=== PATIENT | female | born 1950 | race Caucasian/White ===

== ENCOUNTER 2021-09-01 14:23 | Emergency (ER) | payer OTHER ==
[~2021-09-01] VITALS: Ht 154.9 cm; Wt 53.5 kg
--- NOTE | 2021-09-01 14:27 | NUR ---
BIBA TAKEN TO BED 8
[2021-09-01 14:42] VITALS: BP 124/96
[2021-09-01] MEDS ORDERED: NACL 0.9% 1,000 ML IV ONE (14:50)
--- NOTE | 2021-09-01 14:59 | NUR ---
XRAY AT BEDSIDE
--- NOTE | 2021-09-01 15:07 | NUR ---
71 Y/O FEMALE BIBA FROM [facility] WITH C/O ALOC. PATIENT IS USUALLY ABLE TO FOLLOW SIMPLE COMMANDS PER NURSE JESSICA. PATIENT BECAME ALTERED 3 DAYS AGO AND WAS GIVEN IV ROCEPHIN FOR TX OF UTI BUT PATIENTS S/S HAVE NOT IMPROVED. PATIENTS IS UNDER THE CARE OF DR. AYALA. MEDICAL HISTORY: ANEMIA, CANCER LUNG, COPD, FRACTURE RIGHT CLAVICLE, CORONARY ATHEROSCLEROSIS, CALCIFIED CORONARY LESIONS, MALIGNANT NEOPLASM OF LARGE INTESTINE MEDICATIONS: SEE LIST NKDA
--- NOTE | 2021-09-01 15:19 | NUR ---
PATIENT WAS TAKEN VIA [facility] FOR CT
--- NOTE | 2021-09-01 15:51 | NUR ---
71/F BIBA FROM [facility] WITH C/O INCREASINGLY MORE ALTERED X2 DAYS. PER STAFF AT FACILITY PATIENT IS USUALLY AOX4 AND ABLE TO VERBALIZE NEEDS, STATING PATIENT HAS PROGRESSIVELY GOTTEN MORE ALTERED. STAFF STATED TO EMS THAT PATIENT WAS DX WITH UTI 3 DAYS AGO AND HAS BEEN RECEIVING IV ROCEPHIN. PATIENT PLACED IN GOWN ON BEDSIDE MATTRESS AND FOUNDATION SEWER UPON ARRIVAL TO ED.
--- NOTE | 2021-09-01 15:53 | NUR ---
LAB AT BEDSIDE.
[2021-09-01 16:56] LABS: BASOPHILS # (AUTO) 0.1 K/uL (0.00-0.22); BASOPHILS % (AUTO) 0.5 % (0.0-2.0); EOSINOPHILS % (AUTO) 0.1 % (0.0-4.0); HEMOGLOBIN 7.9 g/dL (12.0-16.0); LYMPHOCYTES # (AUTO) 0.7 K/uL (2.5-16.5); LYMPHOCYTES % (AUTO) 5.9 % (20.5-51.1); MEAN CORPUSCULAR HEMOGLOBIN 25 pg (27-31); MEAN CORPUSCULAR HGB CONC 29 g/dL (33-37); MEAN CORPUSCULAR VOLUME 84.9 fL (80-94); MONOCYTES # (AUTO) 0.8 K/uL (0.8-1.0); MONOCYTES % (AUTO) 6.6 % (1.7-9.3); NEUTROPHILS # (AUTO) 10.8 K/uL (1.8-7.7); NEUTROPHILS % (AUTO) 86.9 % (42.2-75.2); PLATELET COUNT (AUTO) 238 K/uL (140-450); RED BLOOD CELL COUNT(AUTO) 3.19 MIL/uL (4.20-5.40); RED CELL DISTRIBUTION WIDTH 20.1 % (11.6-13.7); WHITE BLOOD COUNT (AUTO) 12.5 K/uL (4.8-10.8)
[2021-09-01 17:13] LABS: ALBUMIN 1.4 g/dL (3.4-5.0); ASPARTATE AMINOTRANSFERASE 26 U/L (15-37); CARBON DIOXIDE 28.7 mmol/L (21-32); CREATININE 0.5 mg/dL (0.6-1.3); GLUCOSE 106 mg/dL (74-106); TOTAL BILIRUBIN 0.3 mg/dL (0.0-1.0); UREA NITROGEN, BLOOD 23 mg/dL (7-18)
--- NOTE | 2021-09-01 17:30 | NUR ---
Patient noted to have existing wounds upon arrival to ER. Photos taken of wound and placed in chart. Wound covered with dressing. Physician informed.
[2021-09-01 17:43] LABS: ANION GAP 11.5 (8-16); CHLORIDE 108 mmol/L (98-107); POTASSIUM 3.2 mmol/L (3.5-5.1); SODIUM SERUM 145 mmol/L (136-145)
--- NOTE | 2021-09-01 17:47 | NUR ---
ROSA SPECIMEN OBTAINED WALKED TO LAB.
[2021-09-01] MEDS ORDERED: POTASSIUM CHL 20 MEQ/NACL 0.9% 1,000 ML IV ONE (18:05)
--- NOTE | 2021-09-01 18:18 | NUR ---
LAB AT BEDSIDE.
--- NOTE | 2021-09-01 19:00 | NUR ---
# 16 FR Urinary catheter inserted utilizing sterile technique. Immediate return of DARK YELLOW URINE 50ML urine noted. Urine sample collected and sent to lab. Pt tolerated procedure WELL.
[2021-09-01 19:32] LABS: BILIRUBIN,URINE NEGATIVE (NEGATIVE); BLOOD, URINE NEGATIVE (NEGATIVE); COLOR,URINE YELLOW (YELLOW); LEUKOCYTE ESTERASE ,URINE TRACE (NEGATIVE); NITRITE, URINE NEGATIVE (NEGATIVE); PH,URINE 7.5 (5.0-9.0); UGLUCOSE NEGATIVE (NEGATIVE)
[2021-09-01 19:45] LABS: APPEARANCE,URINE HAZY (CLEAR)
[2021-09-01 20:11] LABS: RBC,URINE NONE SEEN /HPF (0-5)
[2021-09-01 20:13] LABS: CALCIUM OXALATE CRYSTALS,UR 0-10 /HPF (None Seen); TRIPLE PHOSPHATE CRYSTAL,UR 0-10 /HPF (None Seen)
--- NOTE | 2021-09-01 20:45 | NUR ---
LAB AT BEDSIDE.
[2021-09-01] MEDS ORDERED: cefTRIAXone 1,000 MG VIAL ONE (21:11)
--- NOTE | 2021-09-01 23:09 | NUR ---
Pt report given to TOÑA CASTILLO. Transfer of care at this time.
--- NOTE | 2021-09-01 23:10 | NUR ---
RECIEVED REPORT FROM ALEX GALLAGHER
[2021-09-02 00:34] LABS: BARBITURATE, URINE NEGATIVE ng/ml (NEG <=200); BENZODIAZEPINE, URINE NEGATIVE ng/mL (NEG <=200); CANNABINOID, URINE NEGATIVE ng/mL (NEG <=50); COCAINE, URINE NEGATIVE ng/mL (NEG <=300); OPIATE, URINE POSITIVE ng/mL (NEG <=2000); PHENCYCLIDINE SCREEN,URINE NEGATIVE ng/mL (NEG <=25)
--- NOTE | 2021-09-02 00:55 | NUR ---
[facility] TRANSPORT AT BEDSIDE
--- NOTE | 2021-09-02 00:57 | NUR ---
PRIMARY RN Matti TRAMMELL GIVING REPORT TO RECEIVING FACILITY
--- NOTE | 2021-09-02 00:58 | NUR ---
Pt report given to TOÑA PAYNE AT [facility] ER VIA TELEPHONE.
[2021-09-02 01:07] VITALS: BP 132/82
--- NOTE | 2021-09-02 01:13 | NUR ---
Patient to be transferred to [facility] ER. Is being transferred due to HIGHER LEVEL OF ORTHOPEDIC CARE. Receiving facility has accepting physician and available space. ER physician has signed transfer form. Patient or responsible constitution party has agreed to transfer and signed form. Patient belongings inventoried and will be sent with patient. Copy of nursing notes, lab reports, EKG, Physicians Orders and X-rays to be sent with patient. Report called to TOÑA PAYNE at receiving facility. [facility] ambulance service has been called for transfer.
== END 2021-09-02 01:13 | disposition short-term general hospital (02) ==
LOC: MED 14:23
DX: R41.82 Altered mental status, unspecified (principal); Z20.822 Contact with and (suspected) exposure to COVID-19; M84.459A Pathological fracture, hip, unspecified, initial encounter for fracture; N39.0 Urinary tract infection, site not specified; R53.1 Weakness; J44.9 Chronic obstructive pulmonary disease, unspecified; F03.90 Unspecified dementia, unspecified severity, without behavioral disturbance, psychotic disturbance, mood disturbance, and anxiety; Z98.890 Other specified postprocedural states
CPT/HCPCS: 36415; 70450; 71045; 72170; 73552; 80053; 80305; 81001; 82140; 82550; 83605; 84484; 85025; 87040; 87086; 87426; 93005; 96361; 96365; 99285; G0482; J0696; J7030; Q0092; 83880